=== PATIENT | female | born 1970 | race Caucasian/White ===

== ENCOUNTER 2018-11-16 13:51 | Emergency (ER) | payer OTHER ==
[~2018-11-16] VITALS: Ht 149.9 cm; Wt 77.1 kg
[2018-11-16] MEDS ORDERED: AMLODIPINE BESY10 MG PO (14:23)
[2018-11-16] MEDS ORDERED: ASPIRIN81 MG PO (14:23)
[2018-11-16] MEDS ORDERED: FLUOXETINE HCL20 M1 PO (14:24)
[2018-11-16] MEDS ORDERED: ESTRACE2 MG PO (14:24)
[2018-11-16] MEDS ORDERED: HYDROCHLOROTH12.5 MG PO (14:24)
[2018-11-16] MEDS ORDERED: CARDURA1 MG PO (14:24)
[2018-11-16] MEDS ORDERED: METOPROLOL SUC100 MG PO (14:25)
[2018-11-16] MEDS ORDERED: ALDACTONE25 MG PO (14:25)
[2018-11-16] MEDS ORDERED: ZOFRAN4 MG PO (14:25)
[2018-11-16] MEDS ORDERED: SUMATRIPTAN SU100 MG PO (14:26)
[2018-11-16] MEDS ORDERED: NORCO 5-325 TA1 EACH PO (16:45)
== END 2018-11-16 17:03 | disposition home or self-care (01) ==
LOC: ED 13:51
DX: S39.012A Strain of muscle, fascia and tendon of lower back, initial encounter (principal); I12.9 Hypertensive chronic kidney disease with stage 1 through stage 4 chronic kidney disease, or unspecified chronic kidney disease; N18.9 Chronic kidney disease, unspecified; F17.200 Nicotine dependence, unspecified, uncomplicated; Z88.5 Allergy status to narcotic agent; Z88.0 Allergy status to penicillin; Z88.6 Allergy status to analgesic agent; Z79.899 Other long term (current) drug therapy; Z79.82 Long term (current) use of aspirin; X50.9XXA Other and unspecified overexertion or strenuous movements or postures, initial encounter
CPT/HCPCS: 99283